=== PATIENT | female | born 1955 | race Caucasian/White ===

== ENCOUNTER 2018-06-01 07:59 | Inpatient (IN) ==
[2018-05-25 19:52] LABS: Appearance,Urine CLEAR; Bacteria,Urine 0 /hpf (0); Bilirubin,Urine NEG (NEG); Color,Urine STRAW; Glucose,Urine (UA) NEGATIVE (NEG); Leukocyte Esterase,Urine NEG /uL (NEG); Protein,Urine NEG (NEG); Specific Gravity,Urine 1.011 (1.000-1.035); Urine Amorphous Crystals FEW /hpf (0); Urine Blood 0.03 mg/dL (<0.03); Urine RBC 0 /hpf (0-1); Urine Squamous Epithelial Cell < 1 /hpf (0-4); Urine Transitional Epi Cells < 1 /hpf (0-2); Urine WBC < 1 /hpf (0-4); Urobilinogen,Urine NEG (NEG)
[2018-05-25 20:01] LABS: Basophils # (Auto) 0 K/mcL (0.0-0.3); Basophils % (Auto) 0.6 % (0.0-2.0); Eosinophils # (Auto) 0.2 K/mcL (0.0-0.7); Eosinophils % (Auto) 2.8 % (0.0-7.0); Lymphocytes # (Auto) 2.2 K/mcL (1.5-4.8); Lymphocytes % (Auto) 31.1 % (15.5-49.0); Mean Cell Volume 87.6 fL (80.0-100.0); Monocytes # (Auto) 0.5 K/mcL (0.1-0.9); Monocytes % (Auto) 6.5 % (1.0-12.0); Platelet Count 211 K/mcL (140-440); RBC 4.08 M/mcL (4.00-5.20); Red Cell Distribution Width 12.8 % (11.5-14.5)
[2018-05-25 20:35] LABS: Blood Urea Nitrogen 25 mg/dl (8-23)
[~2018-06-01 07:59] MED LIST: 0.9 % SODIUM CHLORIDE 9 ML, KETOROLAC 30 MG, ROPIVACAINE HCL/PF 49.5 ML, EPINEPHrine 0.... IJ SCH; ACETAMINOPHEN 500 MG TABLET PO SCH; CELECOXIB 200 MG CAPSULE PO SCH; PREGABALIN 75 MG CAPSULE PO SCH; ceFAZolin 1 GM VIAL IV SCH; oxyCODONE 10 MG TAB.ER.12H PO SCH
[2018-06-01] MEDS ORDERED: ePHEDrine 50 MG/ML AMPUL IV ONE (10:35)
[2018-06-01] MEDS ORDERED: ROPIVACAINE HCL/PF 20 ML VIAL IJ ONE (10:35)
[2018-06-01] MEDS ORDERED: PROPOFOL 200 MG/20 ML VIAL IV ONE (10:35)
[2018-06-01] MEDS ORDERED: TRANEXAMIC ACID 1,000 MG/10 ML VIAL IV ONE ×2 (10:35→12:23)
[2018-06-01] MEDS ORDERED: LIDOCAINE HCL/PF 100 MG/5 ML SYRINGE IV ONE (10:35)
[2018-06-01] MEDS ORDERED: DEXAMETHASONE 4 MG/ML VIAL IV ONE (10:35)
[2018-06-01] MEDS ORDERED: ONDANSETRON 4 MG/2 ML VIAL IV ONE (10:35)
[2018-06-01] MEDS ORDERED: GENTAMICIN SULFATE 800 MG/20 ML VIAL IR ONE (11:06)
[2018-06-01] MEDS ORDERED: IPRATROPIUM/ALBUTEROL 3 ML AMPUL.NEB NEB PRN (12:12)
[2018-06-01] MEDS ORDERED: KETOROLAC 15 MG/ML VIAL IV PRN (12:12)
[2018-06-01] MEDS ORDERED: FLUMAZENIL 0.1 MG/ML ML IV PRN (12:12)
[2018-06-01] MEDS ORDERED: diphenhydrAMINE 50 MG/ML VIAL IV PRN (12:12)
[2018-06-01] MEDS ORDERED: MEPERIDINE 25 MG/ML SYRINGE IV PRN (12:12)
[2018-06-01] MEDS ORDERED: fentaNYL 100 MCG/2 ML VIAL IV PRN (12:12)
[2018-06-01] MEDS ORDERED: NALOXONE HCL 0.4 MG/ML VIAL IV PRN (12:12)
[2018-06-01] MEDS ORDERED: PROMETHAZINE 25 MG/ML VIAL IV PRN (12:12)
[2018-06-01] MEDS ORDERED: LACTATED RINGERS 250 ML IV PRN (12:12)
[2018-06-01] MEDS ORDERED: ONDANSETRON 4 MG/2 ML VIAL IV PRN ×2 (12:12→12:23)
[2018-06-01] MEDS ORDERED: LACTATED RINGERS 1,000 ML IV SCH (12:15)
[2018-06-01] MEDS ORDERED: ONDANSETRON 4 MG ODT TABLET SL PRN (12:23)
[2018-06-01] MEDS ORDERED: MAGNESIUM HYDROXIDE 30 ML ORAL.SUSP PO PRN (12:23)
[2018-06-01] MEDS ORDERED: HYDROmorphone 2 MG/ML VIAL IV PRN (12:23)
[2018-06-01] MEDS ORDERED: BENZOCAINE/MENTHOL 1 LOZENGE PO PRN (12:23)
[2018-06-01] MEDS ORDERED: BISACODYL 10 MG SUPP.RECT PR PRN (12:23)
[2018-06-01] MEDS ORDERED: TEMAZEPAM 15 MG CAPSULE PO PRN (12:23)
[2018-06-01] MEDS ORDERED: ACETAMINOPHEN 325 MG TABLET PO PRN (12:23)
[2018-06-01] MEDS ORDERED: FLEETS ADULT ENEMA PR PRN (12:23)
[2018-06-01] MEDS ORDERED: POLYETHYLENE GLYCOL 3350 17 GM PACKET PO PRN (12:23)
--- NOTE | 2018-06-01 12:30 | Brief Operative Note ---
Date of procedure: 06/01/18 Pre-op diagnosis: left knee djdd severe Post-op diagnosis: same Procedure: left tka with wm robot Grafts/Implants: Yes Anesthesia: GETA Complications: none Complications Description: 06/01/18 12:29 none Surgeon: Marty Harrell Analytical Chemistry Teacher: Jd Burrows Estimated blood loss (cc): 50 Tourniquet Time (Minutes): 64 Specimens Removed/Pathology: none sent Condition: stable Disposition: PACU
--- NOTE | 2018-06-01 13:07 | XRay Report ---
CLINICAL INFORMATION: Post-Op Total Knee COMPARISON: None. FINDINGS: Total knee prostheses is anatomically aligned. No osseous abnormality. Periarticular gas and soft tissue swelling seen. IMPRESSION: Negative Interpreted and Authenticated by: Hossein Motta 06/01/18
--- NOTE | 2018-06-01 14:31 | Operative Note ---
DATE OF OPERATION: 06/01/2018 PREOPERATIVE DIAGNOSIS: Left knee DJD, severe. POSTOPERATIVE DIAGNOSIS: Left knee DJD, severe. PROCEDURE: Left total knee arthroplasty using the Anderson robot. SURGEON: Marty Harrell MD GARDE MANAGER: Jd Burrows PA-C TOTAL TOURNIQUET TIME: Approximately 64 minutes. ESTIMATED BLOOD LOSS: 50 mL IMPLANTS PLACED: A size 3 femur and size 3 tibial baseplate with a dished poly and a 32 mm patellar button. INDICATIONS FOR SURGERY: The patient did have severe arthritis on x-ray. She had severe symptoms walking only a few blocks before she had to sit down. She had failed several steroid injections, anti-inflammatories and Tylenol as pain relievers. It had become so incapacitating that she elected to proceed with the above-mentioned surgery. DESCRIPTION OF PROCEDURE: The patient was brought to the operating room and put to sleep with general LMA anesthesia. Once asleep, the patient had the left leg sterilely prepped and draped in the usual sterile fashion. A timeout was performed to confirm this was the operative site by initials, consent form and x-rays. Once this was done, we then proceeded with the case. The patient had a midline incision, mid vastus approach. Tourniquet was inflated to 250 pounds of pressure and then we exposed the mid vastus approach of the knee. Exposing a severely deformed knee with severe varus malalignment, this had greater than 12 degrees of varus with lateral thrust and subluxation of the tibia with a chronically torn ACL with large spurs portion posteriorly. She lacked approximately 12 degrees of extension with a flexion contracture of 12 degrees. After calculating this and placing the pins within the femur and registering the center of hip rotation, medial and lateral malleoli 30 points on the femur and tibia, intra-articular pins on the femur and tibia were registered. The robot had been registered as well. 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 With this, we then removed the osteophytes and balanced the knee as noted above. We made the adjustments as required and then brought the robot in and made our cuts for the tibia and femur. Tapping these into place size 3 baseplate and size 3 femur with an 11 mm poly seemed to make this perfectly stable. I believe we went up to a size 12 poly for stability reasons, achieving both 0 degrees extension, 2 degrees of varus in anatomy, well tracking patella. The patella was a 32 mm oval patella. Her total thickness had been worn down to 18-19 mm. She was probably 22-23 total thickness. This was cut to 13 mm in total thickness and then we cemented into place size 3 femur and size 3 tibial baseplate, a 32 mm oval patella with dished liner, or cruciate stabilizing design in case the PCL had difficulty. The PCL seemed to be intact; however, though she lost her ACL. After placing all these implants we kept the knee at 45 degrees and removed any excess cement until the cement was dry. We deflated the tourniquet at 64 minutes and controlled any bleeding. No posterior bleeding. We did inject the soft tissues with the post-inject formula both in the posterior capsule, taking care to avoid any neurovascular structures by aspirating. Once this was done, we then closed the mid vastus approach with #1 Stratafix x2 sutures which are self-locking sutures. The skin was closed with 2-0 Vicryl and adhesive closure. Blood loss about 50 mL. There was no complication with the procedure. The patient tolerated this well. RBH:hunter Job ID: [id number] Doc ID: [id number] Marty Harrell MD
[2018-06-01] MEDS: 0.9 % SODIUM CHLORIDE 10 ML SYRINGE IV SCH ×2 (16:16→22:00)
[2018-06-01] MEDS: 0.45 % SODIUM CHLORIDE 1,000 ML IV SCH (16:37)
[2018-06-01] MEDS: ceFAZolin 1 GM VIAL IV SCH (18:14)
[2018-06-01] MEDS: KETOROLAC 15 MG/ML VIAL IV SCH (18:15)
[2018-06-01] MEDS: DOCUSATE SODIUM 100 MG CAPSULE PO SCH (20:33)
[2018-06-01] MEDS: ASPIRIN 325 MG ENTERIC COATED TABLET PO SCH (20:34)
[2018-06-01] MEDS: GLUCOSAMINE PO SCH (20:36)
[2018-06-01] MEDS: CHONDROITIN PO SCH (20:36)
[2018-06-01] MEDS ORDERED: PARoxetine 20 MG TABLET PO SCH (21:00)
[2018-06-01] MEDS ORDERED: SENNOSIDES 1 TABLET PO SCH (21:00)
[2018-06-01] MEDS ORDERED: SIMVASTATIN 20 MG TABLET PO SCH (21:00)
[2018-06-02] MEDS: KETOROLAC 15 MG/ML VIAL IV SCH ×2 (00:02→06:24)
[2018-06-02] MEDS: 0.45 % SODIUM CHLORIDE 1,000 ML IV SCH (02:16)
[2018-06-02] MEDS: ceFAZolin 1 GM VIAL IV SCH (02:16)
[2018-06-02] MEDS: oxyCODONE/APAP 5/325MG TABLET PO PRN ×3 (02:22→10:47)
[2018-06-02] MEDS: 0.9 % SODIUM CHLORIDE 10 ML SYRINGE IV SCH ×2 (06:24→11:34)
[2018-06-02] MEDS ORDERED: OMEPRAZOLE 20 MG CAPSULE PO SCH (07:30)
--- NOTE | 2018-06-02 07:35 | Orthopedic Progress Note ---
Subjective Patient information: Note initiated : 06/02/18 at 7:32 am Service Date, if different from initiated Date: [] Patient: Samuel Dang 63 y/o F admitted on 06/01/18 for Left Robotic Total Knee Arthroplasty. Chief Complaint: [Pt is stable this morning on post operative day 1 without any significant concerns or complaints. Patients vital signs have remained stable. Patients dressing is dry and is grossly intact from a neurovascular and motor standpoint. Patients 10 point ROS is otherwise negative. ] Objective Vital signs: Vital Signs Temp Pulse Resp BP Pulse Ox 06/02/18 02:26 98.3 F 70 18 116/60 96 06/01/18 23:58 98.8 F 79 18 93/51 93 06/01/18 19:37 97.7 F 76 20 109/62 93 06/01/18 16:28 80 117/64 93 06/01/18 16:23 93 06/01/18 15:28 75 118/61 100 06/01/18 14:58 75 123/65 100 06/01/18 14:28 80 120/66 99 06/01/18 14:13 110/64 99 06/01/18 13:58 124/64 99 06/01/18 13:43 124/65 97 06/01/18 13:28 118/62 94 06/01/18 13:15 97.7 F 83 18 131/61 97 06/01/18 13:00 98.3 F 79 16 113/75 100 06/01/18 12:47 75 20 133/58 100 06/01/18 12:40 79 20 131/56 100 06/01/18 12:35 81 19 130/66 100 06/01/18 12:33 98.3 F 77 17 130/66 100 06/01/18 08:00 97.9 F 73 18 120/72 94 06/01/18 07:59 97.9 F 73 18 120/72 94 Intake and Output 06/01/18 06/02/18 06/02/18 21:59 05:59 13:59 Intake Total 800 500 Output Total 651 Balance 149 500 Intake: Oral 800 500 Output: Void Amount 650 # of times incontinent of urine 1 Other: Meal Dinner Percent of Meal Consumed 100% Feeding Ability Independent Urine Odor Normal Weight 184 lb 8 oz Intake & Output: Intake & Output 06/01/18 06/02/18 06/02/18 21:59 05:59 13:59 Intake Total 800 500 Output Total 651 Balance 149 500 Weight 184 lb 8 oz Intake: Oral 800 500 Output: Void Amount 650 # of times incontinent of urine 1 Other: Meal Dinner Percent of Meal Consumed 100% Feeding Ability Independent Urine Odor Normal Incision: Yes healing Incision clean and dry: Yes Dressing: Yes clean Neurological exam IM: Yes motor sensory intact, Yes neurovascular intact Extremities exam IM: Yes Foot pink and warm, Yes neurovascular intact - Labs CBC & BMP: 06/02/18 04:30 05/25/18 16:50 Labs: Orthopedic Labs 05/25/18 16:50 PT 12.2 INR 0.9 06/02/18 05/25/18 04:30 16:50 Hgb 11.8 L Hct 29.3 L 35.8 L Assessment and Plan (1) Hx of total knee arthroplasty The patient has been educated regarding dressing care, Physical Therapy recomme ndations, home exercises, restrictions, and follow up appointments. The patient has had all necessary DME prescribed. The patient has remained relatively stable during their hospital course. Leave Dermabond patch intact until followup Status: Acute
--- NOTE | 2018-06-02 07:38 | Discharge Summary ---
Ortho Discharge - TKA - Patient Instructions Diet: Regular Diet Activity: activity as tolerated, weight bearing as tolerated Total Knee Protocol: For Total Knee: Start ROM KENNY with stationary bike or rocking chair. Work on gaining full extension of knee. Posterior dislocation precautions provided. Hip abductor strengthening and gait training instructions provided. Apply Cryocuff as instructed. Dressing Care: May shower in 2 days Patient Education: Total Knee Replacement (DC) Additional Instructions: CPM for home use. - Problem Maintenance (1) Hx of total knee arthroplasty Status: Acute - Follow Up Plan Follow Up Appointments: Jd Burrows PA-C [[employer]] - 06/16/18 11:20 am Disposition: Home, Self-Care Prognosis: Good Rehab Potential: Good I certify that the patient requires SNF services: No Overall status at discharge: patient is progressing back to baseline - Orders For Discharge Prescriptions: Aspirin [Ecotrin] 325 mg PO BID #60 tab.ec Docusate Sodium [Colace] 100 mg PO BID #60 cap oxyCODONE/APAP [Percocet 5-325 mg] 1 - 2 tab PO Q4HP PRN #75 tab PRN Reason: Pain Level 3-6
[2018-06-02] MEDS ORDERED: LOSARTAN 50 MG TABLET PO SCH (09:00)
[2018-06-02] MEDS ORDERED: LOSARTAN/HCTZ 100/25 TABLET PO SCH (09:00)
[2018-06-02] MEDS ORDERED: HYDROCHLOROTHIAZIDE 25 MG TABLET PO SCH (09:00)
[2018-06-02] MEDS ORDERED: ALPRAZolam 0.25 MG TABLET PO SCH (09:00)
[2018-06-02] MEDS: GLUCOSAMINE PO SCH (09:54)
[2018-06-02] MEDS: CHONDROITIN PO SCH (09:54)
[2018-06-02] MEDS: ASPIRIN 325 MG ENTERIC COATED TABLET PO SCH (10:01)
[2018-06-02] MEDS: DOCUSATE SODIUM 100 MG CAPSULE PO SCH (10:02)
== END 2018-06-02 13:15 | disposition home or self-care (01) | DRG 470 ==
LOC: MEDSUR 07:59
PROVIDERS: ADMIT Orthopaedic Surgery; ATTEND Orthopaedic Surgery